=== PATIENT | male | born 1965 | race Caucasian/White ===

== ENCOUNTER → 2024-11-27 06:24 | Outpatient (REF) | payer OTHER, SELFPAY | LOC: RAD 06:24 | PROVIDERS: ATTENDING PHYSICIAN Internal Medicine Cardiovascular Disease; FAMILY PHYSICIAN Physician Assistant Medical | DX: R09.89 Other specified symptoms and signs involving the circulatory and respiratory systems (principal) | CPT/HCPCS: 76770 ==

== ENCOUNTER 2025-05-19 23:35 | Inpatient (IN) | payer OTHER, SELFPAY ==
[2025-05-19 16:56] VITALS: BP 128/76
[2025-05-19 20:39] LABS: Hematocrit 36.3 % (39.0-52.0); Hemoglobin 12.6 g/dL (13.0-18.0); Mean Corp Hgb Conc. 34.7 g/dL (33.0-37.0); Mean Corpuscular Volume 94.5 fL (80.0-94.0); Nucleated Red Blood Cells % 0 % (-); Platelet Count 237 10^3/uL (130-400); Red Cell Dist. Width 12.6 % (11.5-14.5)
[2025-05-19 21:04] LABS: ALT (SGPT) 38 U/L (0-50); AST (SGOT) 24 U/L (17-59); Albumin 4.2 g/dl (3.5-5.0); Alkaline Phosphatase 63 U/L (38-126); Blood Urea Nitrogen 19 mg/dl (9-20); Calcium 9.1 mg/dl (8.4-10.2); Carbon Dioxide 32 mmol/L (22-30); Chloride 106 mmol/L (98-107); Glucose 81 mg/dl (70-99); Potassium 4.2 mmol/L (3.5-5.1); Sodium 141 mmol/L (135-145); Total Protein 5.8 g/dl (6.3-8.2); eGFR > 60.00
[2025-05-19] MEDS: DILAUDID 0.5 MG IV (22:31)
[2025-05-19] MEDS: ZOFRAN 4 MG IV (22:31)
--- NOTE | 2025-05-19 22:39 | ED.GENMED ---
History of Present Illness
General
Chief Complaint: Back Pain
Source: patient
Exam Limitations: none
Time Seen by Provider: 05/19/25 19:50
Nursing documentation reviewed up to this point in time: agreed with
History of Present Illness
History of Present Illness:
Patient reports trip and fall today. COmplains of pain to right hip with radiation to RLE. Brought to ED by family for eval.History of chronic low back pain. States this pain is much worse. denies fever/chills, recent illness. No weakness in
extremities. No bowel or bladder issues. No saddle paresthesia.
Past History
Past History
ED Past Medical History: HTN, Hypercholesterolemia and Other (Chronic back pain)
ED Past Surgical History: Orthopedic and Other (Hernia repair)
Social History
Tobacco: Former smoker
Alcohol: Occasional
Drug: None
Personal:
Living: alone
Employment: Employed
Family History
Family History: Other (No significant)
Review of Systems
Review of Systems
Allergies reviewed?: Yes
All Other Systems: ROS reviewed and negative except as documented in HPI and ROS
Constitutional: Reports no symptoms
EENT: Reports no symptoms
Respiratory: Reports no symptoms
Cardiac: Reports no symptoms
ABD/GI: Reports no symptoms
: Reports no symptoms
Musculoskeletal: Reports joint pain (Pain to right lower back and hip, radiating down RLE)
Skin: Reports no symptoms
Neurological: Reports no symptoms
Psychiatric: Reports no symptoms
Phy Exam
General Physical Exam
General Presentation: moderate distress
General age: appears stated age
General Skin: warm and dry
General Habitus: normal
General Mental: alert
Cardiovascular Exam
Cardiovascular Exam: regular rate/rhythm and no edema
Pulmonary Exam
Pulmonary Exam: lungs clear and no respiratory distress
Neurological Exam
Neurological Exam: alert, oriented x3 and CN II-XII intact
Musculoskeletal Exam
Musculoskeletal Exam: neuro vasc intact
Skin Exam
Skin Exam: normal color, warm/dry and no rash
Psychiatric Exam
Psychiatric Exam: normal mood/affect
Course
Orders/Labs/Results
Orders:
Orders
05/19/25 16:58
CR Hip - RT w/wo Pel 2-3 Vw* Urgent
Comment:
Reason For Exam: fall
Include a pelvis x-ray?: Yes
Lumbar Spine Complete, 4 View [CR Lumbar Spine Comp Min 4 Vw*] Urgent
Comment:
Reason For Exam: fall
05/19/25 20:25
Lower Ext Right wo Contrast CT [CT Lower Ext W/o Iv Cont Rt] Urgent
Comment:
Reason For Exam: hip, femur pain after fall. lesion right femur
05/19/25 20:31
CBC/With Diff [Complete Blood Count/With Diff] Urgent
CMP [Comprehensive Metabolic Panel] Urgent
05/19/25 22:24
HYDROmorphone [Dilaudid] 0.5 mg IV NOW STA
05/19/25 22:25
Ondansetron Injectable [Zofran] 4 mg IV NOW STA
05/19/25 23:30
Admit/Transfer Patient As Directed
Co-Sign Provider:
Level of Care: Inpatient admission
Assign to:: Medical/Surgical
Physician / Group: susan weathers
Diagnosis: pathological fracture
Reason for Hospitalization: pathlogical fracture
Expected length of stay greater than two midnights?: Yes
ELOS- Estimated Length of Stay in days: 3
I certify the patient meets the requirements for IP care: Yes
05/19/25 23:31
PRN Pain Medication Management As Directed
May give lesser potent ordered pain med per pt: Yes
preference::
Protocol:: Medication orders for pain may be administered in a
manner that supports deferring to patient preference
when the pt is:
- Requesting an ordered lesser potent pain medication.
Least to most potent pain medications are defined
as: acetaminophen < NSAID < tramadol < opioids
(morphine, oxycodone, hydromorphone).
- Requesting a lesser dose of the same medication IF
ORDERED.
- Requesting a less intrusive route of administration
if both routes are prescribed by the provider (PO <
IV).
05/19/25 23:32
Code Status As Directed
Resuscitation Status: Full Code
05/19/25 23:34
Skeletal Survey, Limited CR [CR Skeletal Survey, Limited] Routine
Comment:
Reason For Exam: pain
05/20/25 06:00
LAURIE/Immunoglobulins/FLC [Monoclonal Protein Qnt,IMM,FLC] [S] IN AM
PSA Free & Total [S] IN AM
Abnormal Lab Results
05/19/25
20:31
RBC 3.84 L 10^6/uL
(4.70-6.10)
Hgb 12.6 L g/dL
(13.0-18.0)
Hct 36.3 L %
(39.0-52.0)
MCV 94.5 H fL
(80.0-94.0)
MCH 32.8 H pg
(27.0-31.0)
Absolute Monos (auto) 1.0 H 10^3/uL
(0.1-0.6)
Monocytes % 10.6 H %
(1.7-9.3)
Carbon Dioxide 32 H mmol/L
(22-30)
Total Protein 5.8 L g/dl
(6.3-8.2)
05/19/25 20:31
05/19/25 20:31
Vital Signs
Initial and Last Documented VS:
Initial Vital Signs
Temp Pulse Resp BP Pulse Ox
98.6 F 91 16 128/76 95
05/19/25 16:56 05/19/25 16:56 05/19/25 16:56 05/19/25 16:56 05/19/25 16:56
Last Documented Vital Signs
Temp Pulse Resp BP Pulse Ox
98.6 F 91 16 128/76 95
05/19/25 16:56 05/19/25 16:56 05/19/25 16:56 05/19/25 16:56 05/19/25 22:58
*Radiology
Radiology exam reviewed: radiology read reviewed
*Pulse Oximetry
SaO2: 95
Oxygen Mode of Delivery: Room air
Patient hypoxic: no
*Critical Care Note
Total Time (30-74mins, 75-104mins- exclusive of procedures): Not Applicable
Update Note
Update Note:
Patient to ED with complaint of severe right low back and hip pain after fall today ag home. Pain radiates down right leg. Exam results wtihout concern for cauda equina. Xray reviewed. Reveals concerning lesions to bilateral femurs. Sent for CT
due to severe pain in hip. CT confirms metastatic lesions to pelvic bones. Pathologic fx to right acetabulum. Discussed findings with patient and family. WIll admit to hospitalist for pain control, new metastatic disease.
ED Attending Note
-
Portions of this chart may have been created with voice recognition software.� Occasional wrong word or��sound alike� substitutions may have occurred due to the inherent limitations of voice recognition software.
Discharge Plan
Departure
Patient Disposition: Admit
Date of Disposition: 05/19/25
Time of Disposition: 23:01
Presentation/result/management discussed w/ accepting MD/DO: Hospitalist
Condition: Fair
Covid-19: Not Applicable
Discharge Problem:
Intractable pain, Metastatic cancer to bone, Pathologic acetabular fracture
Prescriptions:
No Action
carvedilol 6.25 mg Tablet
6.25 mg PO BID Qty: 60 0RF
atorvastatin 20 mg Tablet
20 mg PO QPM Qty: 30 0RF
hydrocodone-acetaminophen 10-325 mg tablet
1 tab PO BID
furosemide 40 mg tablet
20 mg PO DAILY
Referrals:
Danya Solano PA-C [Family Provider, Family Practice]
Discharge Date and Time
Print Language: MACEDONIAN
--- NOTE | 2025-05-19 23:13 | HPS.HSE ---
Family Physician
-
Family Physician: Danya Solano
Chief Complaint
-
fall
History of Present Illness
59 year old with PMH for HLD, BPH, CHF, back pain presented to us after he tripped over something and fell. since then he has right groin, right lE pain. patient not able to move or walk. denied MARIE, dizzy or syncope. denied fever, chills, cough,
congestion,chest pain,sob. denied abdominal pain,n,v,d. denied dysuria or hematuria.
admitting for further management
Medical History
Past Medical History
Past Medical History: Reports Other
Additional Past Medical History:
BPH
Asthma
CHF
Past Surgical History: Reports Other
Additional Past Surgical History:
Hernia repair, ACL repair
Social History
Tobacco: Former Smoker
Alcohol: None
Drug: None
Living: With Family
Family History
Family History: Not pertinent
Allergies / Home Medications
Allergies reflects when Allergies were last updated in [facility].
Home Medications with original date entered in [facility]
Allergy/Medication List:
Allergies
Allergy/AdvReac Type Severity Reaction Status Date / Time
amoxicillin (Amoxicillin) Allergy Itching Verified 02/20/23 11:01
Home Medications
tadalafil 10 mg tablet 10 mg PO DAILY PRN intercourse 02/20/23
albuterol sulfate 90 mcg/actuation aerosol inhaler (Proventil HFA) 2 puff inhalation Q6H PRN SOB #8.5 grams 02/28/23
aspirin 81 mg tablet,delayed release 81 mg PO DAILY Blood clot prevention/tx #0 tabs 02/28/23
atorvastatin 20 mg tablet 20 mg PO QPM High cholesterol #30 tabs 02/28/23
carvedilol 6.25 mg tablet 6.25 mg PO BID Heart disease/condition #60 tabs 02/28/23
folic acid 1 mg tablet 1 mg PO DAILY Supplement #10 tabs 02/28/23
furosemide 40 mg tablet 40 mg PO BID AT 0800,1600 Heart Failure #120 tabs 02/28/23
gabapentin 100 mg capsule 100 mg PO TID Pain #90 caps 02/28/23
nicotine 14 mg/24 hr daily transdermal patch 14 mg transdermal DAILY Smoking cessation #14 ea 02/28/23
thiamine HCl (vitamin B1) 100 mg tablet 100 mg PO DAILY suplliment #10 tabs 02/28/23
Review of Systems
-
Constitutional: Reports No Symptoms
EENT: Reports No Symptoms
Respiratory: Reports No Symptoms
Cardiac: Reports No Symptoms
Abdomen/GI: Reports No Symptoms
: Reports No Symptoms
Musculoskeletal: Reports Other (right LE pain and weakness)
Skin: Reports No Symptoms
Neurological: Reports No Symptoms
Endocrine: Reports No Symptoms
Hematologic/Lymphatic: Reports No Symptoms
Psych: Reports No Symptoms
Physical Exam
Vital Signs
Vital Signs
Temp Pulse Resp BP Pulse Ox
98.6 F 91 16 128/76 95
05/19/25 16:56 05/19/25 16:56 05/19/25 16:56 05/19/25 16:56 05/19/25 22:58
Physical Exam
General: Well Developed, Well Nourished and No Apparent Distress
HEENT: NormoCephalic, Moist mucous membranes and Atraumatic
Respiratory: Clear
Cardiac: S1/S2 and Regular Rhythm; No Murmur or Rub
GI: Soft, Non Tender, Non Distended and Normal Bowel Sounds; No Organomegaly
Rectal: Deferred by Provider
Musculoskeletal: No Clubbing, No Cyanosis and No Edema
Skin: No Rash
Neuro: AO x 3 and Nonfocal/grossly intact
Psych: Calm
Laboratory Results
-
05/19/25 20:31
05/19/25 20:31
Laboratory Results
Total Bilirubin 0.5 mg/dl (0.2-1.3) 05/19/25 20:31
AST 24 U/L (17-59) 05/19/25 20:31
ALT 38 U/L (0-50) 05/19/25 20:31
Alkaline Phosphatase 63 U/L (38-126) 05/19/25 20:31
Data Reviewed
-
Diagnostic Radiology: Report Reviewed by me
CT Scan: Report Reviewed by me
Lab Data: Labs Reviewed by me
Impression/Plan
-
#intractable back right hip pain secondary to new metastatic bones lesion to pelvis, bilateral femurs
#pathologic right acetabulum fracture
-lumbar spine x ray with Age-indeterminate progressive mild superior plate compression deformity of L1.Chronic moderate to advanced T12 compression deformity.Mild degenerative disc disease and facet arthrosis.
-Hip x ray with Lytic lesions of the right periacetabular ilium, right anterior column, in bilateral femoral diaphysis. Possible considerations include metastatic disease or multiple myeloma
-lower extremity CT pending
-iv Dilaudid prn for pain
-LAURIE, skeletal survey
-fall precaution
#concern for multiple myeloma
-hematology consulted
# CHF
-not in acute exacerbation
-strict I&O, daily weight
-Lasix continued
#HTN
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
#ex Smoker
#Chronic back pain
-hydrocodone
#VTE prophylaxis-Subcu heparin
#full code
--- NOTE | 2025-05-19 23:24 | W.PN.UPDATE ---
Update Note
Progress Note Update
This note serves as an addendum to the H&P by social media sr strategy manager MICHELLE�
Joelle JOEL
HPI�
59M Former smoker, chr LBP, HX HFpEF, RV dysfunction, HLD, seen at ER
- he trip and fall today.
- acute R hip pain with radiation to RLE.
Brought to ED by family for eval
ROS
- denies fever/chills, recent illness. No weakness in extremities. No bowel or bladder issues. No saddle paresthesia.
Relevant VS
Vital Signs
Temp Pulse Resp BP Pulse Ox
98.6 F 91 16 128/76 95
05/19/25 16:56 05/19/25 16:56 05/19/25 16:56 05/19/25 16:56 05/19/25 22:58
PE
GEN: No distress, awake, nasal cannula in place
HEENT: supple, anicteric, mmm
LUNGS: Bibasilar Rales
CV: Reg, S1/S2, 1/6 syst LSB, no gallop
ABD: soft, BS+, NT/ND
EXT: No edema
NEURO: Gross non-focal
SKIN: No rash
Relevant Data
05/19/25
20:31
WBC 9.1
Hgb 12.6 L
Plt Count 237
Carbon Dioxide 32 H
Creatinine 0.9
eGFR > 60.00
Calcium 9.1
Total Protein 5.8 L
Albumin 4.2
R Hip XR
- No radiographically demonstrable right femoral head or neck fracture.
- Lytic lesions of the right periacetabular ilium, right anterior column, in bilateral femoral diaphysis.
Possible considerations include metastatic disease or multiple myeloma.
Lx spine XR
- Age-indeterminate progressive mild superior plate compression deformity of L1.
- Chronic moderate to advanced T12 compression deformity.
- Mild degenerative disc disease and facet arthrosis.
02/22/2023 TTE
- EF 55 to 60%. Moderate LVH.
- Mildly dilated right ventricle with reduced function.
- Mild TR with PA pressure 40 to 45 mmHg.
- Hypoechoic density noted at the sinotubular junction (may have been present retrospectively on last echocardiogram also)
Reviewed CT scan on admission with radiology and felt to be atherosclerosis.
Last hospitalist admission: DATE OF ADMISSION: 02/20/2023 - DATE OF DISCHARGE: 02/28/2023
DISCHARGE DIAGNOSES:
1. Acute respiratory failure.
2. Congestive heart failure.
3. Hypertension.
4. Chronic back pain.
5. Emphysema.
ASSESSMENT & PLAN
R Hip pain
XR evince of Lytic lesions @ R periacetabular ilium, R anterior column, in bilateral femoral diaphysis.
DDX: metastatic disease vs. multiple myeloma.
- Pending R LE CT
- Further w/u for myeloma and secondary metastatic dz
- LAURIE , SPEP and UPEP
- check PSA
- skeletal survey - limited to skull
- PRN narcotic analgesia
- Onco consult
HX RV dysfunction, HX HFpEF
Concern for VESTA
- LENS CLEANER PO Lasix 30mg daily
- LENS CLEANER Carvedilol 6.25mg daily
HLD
- on Atorvastatin
DVT Px: SQH
Full code
IP MS
[2025-05-20] VITALS (8 sets, daily range): BP systolic 99–127; BP diastolic 57–75; BMI 26.8; BMI 26.5
[2025-05-20] MEDS: DILAUDID 0.5 MG IV (02:24)
--- NOTE | 2025-05-20 03:11 | PTCARENOTE ---
Pt arrived to floor via stretcher and requested to stand and pivot to bed. pt aox3, vss, 10/10 pain in right leg/hip. air overlay placed, call faye within reach. Will review chart and follow plan of care.
[2025-05-20] MEDS: LASIX 20 MG PO (08:23)
[2025-05-20] MEDS: HEPARIN 5000 UNITS SC ×2 (08:24→20:27)
[2025-05-20] MEDS: COREG 6.25 MG PO ×2 (08:24→20:26)
--- NOTE | 2025-05-20 08:58 | CON.ONC ---
Consultation
-
Date Consultation Requested: 05/20/25
Date Consultation Performed: 05/20/25
Impression
Impression
Extensive lytic bony disease suggestive of malignancy
Thoracic compression fractures of unclear age
Pain syndrome
Hypertension
History of CHF
Mild anemia with 5 g drop in hemoglobin since end of February
Plan
Plan
Would recommend CT scan chest abdomen and pelvis with oral and IV contrast
Myeloma seems less likely with low immunoglobulins on chemistry
No evidence of renal insufficiency noted IR directed biopsy
Based on CAT scans or iliac bone which seems relatively heavily involved on lower extremity CT scan
Myeloma panel pending
PSA pending
Patient History
History of Present Illness
59 year old with PMH for HLD, BPH, CHF, back pain presented to us after he tripped over something and fell. since then he has right groin, and right lower extremity. Patient not able to move or walk. Denied MARIE, dizzy or syncope. denied fever,
chills, cough, congestion,chest pain,sob, abdominal pain,n,v,d, dysuria or hematuria.
Past-Medical/Surgical History
Past Medical History
BPH
Asthma
CHF
Past Surgical History
Hernia repair, ACL repair
Social History
Tobacco: Former Smoker
Alcohol: None
Drug: None
Living: With Family
Family History
Family History: Not pertinent
Patient Medication
�Medication �Instructions �Recorded �Confirmed �Last Taken �Type
atorvastatin 20 mg tablet 20 mg PO QPM High cholesterol #30 02/28/23 05/19/25 Unknown Rx
tabs
carvedilol 6.25 mg tablet 6.25 mg PO BID Heart 02/28/23 05/19/25 Unknown Rx
disease/condition #60 tabs
furosemide 40 mg tablet 20 mg PO DAILY Heart Failure 05/19/25 05/19/25 Unknown History
hydrocodone 10 mg-acetaminophen 1 tab PO BID back pain 05/19/25 05/19/25 Unknown History
325 mg tablet
Active Medications
Generic Name Dose Route Start Last Admin
Trade Name Freq PRN Reason Stop Dose Admin
Acetaminophen 650 mg 05/20/25 00:07
Acetaminophen 325 Mg Tablet PO 06/17/25 00:06
Q4HPRN PRN
mild pain/MARIE/temp> 100.4F
Atorvastatin Calcium 20 mg 05/20/25 18:00
Atorvastatin (Lipitor) 20 Mg Tablet PO 06/17/25 17:59
QPM CODY
Bisacodyl 10 mg 05/20/25 00:07
Bisacodyl 10 Mg Rectal Suppository RECTAL 06/17/25 00:06
[id number] PRN
constipation
Carvedilol 6.25 mg 05/20/25 08:00 05/20/25 08:24
Carvedilol 6.25 Mg Tablet PO 06/17/25 07:59 6.25 mg
BID CODY Administration
Furosemide 20 mg 05/20/25 08:00 05/20/25 08:23
Furosemide 40 Mg Tablet PO 06/17/25 07:59 20 mg
DAILY CODY Administration
Heparin Sodium 5,000 units 05/20/25 08:00 05/20/25 08:24
Heparin 5,000 Units/Ml 1 Ml Vial SC 06/17/25 07:59 5,000 units
Q12 CODY Administration
Hydromorphone HCl 0.5 mg 05/20/25 00:07 05/20/25 02:24
Hydromorphone 0.5 Mg/0.5 Ml Syringe IV 06/03/25 00:06 0.5 mg
Q4HPRN PRN Administration
severe pain
Non-Formulary Medication 1 tablet 05/20/25 08:00
Hydrocodone-Acetaminophen PO 06/17/25 07:59
BID CODY
Polyethylene Glycol 17 grams 05/20/25 00:07
Polyethylene Glycol Powder 17 Grams Packet PO 06/17/25 00:06
DAILYPRN PRN
constipation
Senna/Docusate Sodium 1 tablet 05/20/25 00:07
Docusate W/Senna (Pauline-Colace) Tablet PO 06/17/25 00:06
BIDPRN PRN
constipation
Review of Systems
-
12 point review of systems fails to elicit additional complaints
Physical Exam
-
Physical Exam
General: Well Developed, Well Nourished and No Apparent Distress
HEENT: NC, Moist mucous membranes and Atraumatic
Respiratory: Clear
Cardiac: S1/S2 and Regular Rhythm; No Murmur or Rub
GI: Soft, Non Tender, Non Distended and Normal Bowel Sounds; No Organomegaly
Rectal: Deferred by Provider
Musculoskeletal: No Clubbing, No Cyanosis and No Edema
Skin: No Rash
Neuro: AO x 3 and Nonfocal/grossly intact
Psych: Calm
Labs
Lab Results
WBC 9.1 10^3/uL (4.8-10.8) 05/19/25 20:31
RBC 3.84 10^6/uL (4.70-6.10) L 05/19/25 20:31
Hgb 12.6 g/dL (13.0-18.0) L 05/19/25 20:31
Hct 36.3 % (39.0-52.0) L 05/19/25 20:31
MCV 94.5 fL (80.0-94.0) H 05/19/25 20:31
MCH 32.8 pg (27.0-31.0) H 05/19/25 20:31
MCHC 34.7 g/dL (33.0-37.0) 05/19/25 20:31
RDW 12.6 % (11.5-14.5) 05/19/25 20:31
Plt Count 237 10^3/uL (130-400) 05/19/25 20:31
MPV 9.6 fL (7.4-10.4) 05/19/25 20:31
Abs Immat Gran (auto) 0.0 10^3/uL (0-0.05) 05/19/25 20:31
Absolute Neuts (auto) 5.2 10^3/uL (1.4-6.5) 05/19/25 20:
Absolute Lymphs (auto) 2.5 10^3/uL (1.2-3.4) 05/19/25 20:31
Absolute Monos (auto) 1.0 10^3/uL (0.1-0.6) H 05/19/25 20:31
Absolute Eos (auto) 0.3 10^3/uL (0-0.7) 05/19/25 20:31
Absolute Basos (auto) 0.1 10^3/uL (0-0.2) 05/19/25 20:31
Immature Gran % 0.3 % (0-0.5) 05/19/25 20:31
Neutrophils % 56.9 % (42.2-75.2) 05/19/25 20:31
Lymphocytes % 27.8 % (20.5-51.1) 05/19/25 20:31
Monocytes % 10.6 % (1.7-9.3) H 05/19/25 20:31
Eosinophils % 3.6 % (0-6) 05/19/25 20:31
Basophils % 0.8 % (0-2) 05/19/25 20:31
Creatinine 0.9 mg/dL (0.7-1.3) 05/19/25 20:31
Vital Signs
Vital Signs
Temp Pulse Resp BP Pulse Ox
98.8 F 89 16 107/57 88
05/20/25 07:56 05/20/25 08:24 05/20/25 07:56 05/20/25 08:24 05/20/25 07:56
[2025-05-20] MEDS: OMNIPAQUE 50 ML PO (10:30)
--- NOTE | 2025-05-20 10:45 | W.PN.HOSP.TC ---
Today's Communication/Plan
-
see outlined plan below
Assessment / Plan
Assessment / Plan
Assessment:
intractable back right hip pain secondary to new metastatic bones lesion to pelvis, bilateral femurs
pathologic right acetabulum fracture
- X:ray: Lytic lesions of the right periacetabular ilium, right anterior column, in bilateral femoral diaphysis. Possible considerations include metastatic disease or multiple myeloma.
- CT: Multiple osseous lytic lesions throughout the imaged pelvic bones as described above consistent with metastatic disease. Findings suggesting associated nondisplaced pathologic fracture of the right acetabulum
- skeletal survey requested
- CT C/A/P with PO/IV contrast per Oncology
- Oncology following; Myeloma workup and PSA pending
- pain control: IV Dilaudid
- PT/OT; TTWB for now. Fall precautions
Chronic HFpEF
- not in acute exacerbation
- strict I&O, daily weight
- Lasix continued
Essential HTN
- continue [employer] Coreg
ex Smoker
Chronic back pain
- hydrocodone
DVT ppx: SC Heparin
Code: Fullfull code
Anticipated Discharge: 24 - 48 hours
Subjective/Interval History
-
Date of Service: May 20, 2025
reports suboptimal pain control with current Dilaudid dose
Objective Data
-
Vital Signs:
Vital Signs
Temp Pulse Resp BP Pulse Ox
98.8 F 89 16 107/57 88
05/20/25 07:56 05/20/25 08:24 05/20/25 07:56 05/20/25 08:24 05/20/25 07:56
I&O
05/19/25 05/20/25 05/21/25
06:59 06:59 06:59
Intake Total 480 / 480
Balance 480 / 480
Physical Exam
-
General: No Apparent Distress
HEENT: Normocephalic and Atraumatic
Respiratory: Negative Wheezes
Cardiac: Regular Rhythm and S1/S2
GI: Soft and Nontender
Musculoskeletal: No Edema
Neuro: AO x 3
Psych: Calm
Data Reviewed
-
Total Time Spent with Patient (in minutes): 44
Labs: Labs Reviewed by me
[2025-05-20] MEDS: DILAUDID 1 MG IV (13:50)
[2025-05-20 14:25] LABS: Hepatitis C Antibody Negative (Negative)
[2025-05-20] MEDS: LIPITOR 20 MG PO (16:51)
[2025-05-20] MEDS: NORCO 5/325 2 TABLET PO (20:27)
[2025-05-21 06:00] VITALS: BMI 26.2
[2025-05-21 07:24] LABS: Hematocrit 36.6 % (39.0-52.0); Hemoglobin 12.6 g/dL (13.0-18.0); Mean Corp Hgb Conc. 34.4 g/dL (33.0-37.0); Mean Corpuscular Volume 93.6 fL (80.0-94.0); Platelet Count 227 10^3/uL (130-400); Red Cell Dist. Width 12.6 % (11.5-14.5)
[2025-05-21] MEDS: NORCO 5/325 2 TABLET PO ×2 (07:26→19:11)
[2025-05-21] MEDS: LASIX 20 MG PO (07:27)
[2025-05-21] MEDS: COREG 6.25 MG PO ×2 (07:27→19:10)
[2025-05-21] MEDS: HEPARIN 5000 UNITS SC ×2 (07:28→19:11)
[2025-05-21 07:47] LABS: Blood Urea Nitrogen 16 mg/dl (9-20); Calcium 9.4 mg/dl (8.4-10.2); Carbon Dioxide 33 mmol/L (22-30); Chloride 102 mmol/L (98-107); Estimated Creatinine Clearance 111 ml/min; Glucose 79 mg/dl (70-99); LDH 163 U/L (120-246); Potassium 4.1 mmol/L (3.5-5.1); Sodium 139 mmol/L (135-145); eGFR > 60.00
[2025-05-21 08:07] VITALS: BP 110/81
[2025-05-21 08:56] LABS: Vitamin D, 25-OH*** 35.6 ng/mL (30-80)
--- NOTE | 2025-05-21 10:17 | W.PN.HOSP.TC ---
Addendum entered and electronically signed by Aixa Reddy MD 05/21/25 14:25:
Addendum
Patient was seen by oncology. Discussed with oncologist on-call, recommend bone biopsy. Discussed with interventional radiologist, lesions amenable to biopsy but will need to scanner.
Discussed with the patient, he did not want to do outpatient biopsy due to difficult transportation and pain problem. Agreeable to stay for inpatient biopsy knowing that timing is undetermined as of yet.
Of note, discussed with patient at length regarding recommendation for SNF to provide supervision and care. Patient has risk for fall and pathological fractures. He verbalized understanding but refused SNF. vessel manager was present at bedside.
End
Original Note:
Today's Communication/Plan
-
prefer SNF discharge
Assessment / Plan
Assessment / Plan
Physical Exam
General: Well Developed, Well Nourished and No Apparent Distress
HEENT: Normocephalic, Moist mucous membranes and Atraumatic
Respiratory: Clear
Cardiac: S1/S2 and Regular Rhythm; No Murmur or Rub
GI: Soft, Non Tender, Non Distended and Normal Bowel Sounds;
Rectal: No bleeding
Musculoskeletal: No Clubbing, No Cyanosis and No Edema
Skin: No Rash
Neuro: AO x 3 and Nonfocal/grossly intact
Psych: Calm
Assessment and plan:
Acute on chronic pain syndrome with opioid dependency
intractable bone pain , mostly back right hip pain secondary to new metastatic bones lesion to bones.
pathologic right acetabulum fracture
- X:ray: Lytic lesions of the right periacetabular ilium, right anterior column, in bilateral femoral diaphysis. Possible considerations include metastatic disease or multiple myeloma.
- CT: Multiple osseous lytic lesions throughout the imaged pelvic bones as described above consistent with metastatic disease. Findings suggesting associated nondisplaced pathologic fracture of the right acetabulum
- skeletal survey done
- CT C/A/P with PO/IV contrast per Oncology, no evidence of metastatic disease within the chest, abdomen, or pelvis.
- Oncology following; Myeloma workup and PSA pending, ok to go home and f/w oncology in office. Labs are pending
- pain control: IV Dilaudid
- PT/OT; TTWB for now. Fall precautions
PT saw him today 05/21, ok with [facility]
Chronic HFpEF
- not in acute exacerbation
- strict I&O, daily weight
- Lasix continued
Essential HTN
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
ex Smoker
Chronic back pain
- hydrocodone
DVT ppx: SC Heparin
Code: Fullfull code
Total discharge time spent to see the patient, examine the patient, review data and lab result, discuss discharge plan with patient, nursing staff around 65 minutes
Anticipated Discharge: Today
Subjective/Interval History
-
Date of Service: May 21, 2025
No chest pain
No sob
Pain is better controlled with combination of hydrocodone and PRN Dilaudid
he is anxious to go home
Objective Data
-
Labs:
Laboratory Results
05/21/25
06:21
WBC 7.9
Hgb 12.6 L
Hct 36.6 L
Plt Count 227
Sodium 139
Potassium 4.1
Chloride 102
Carbon Dioxide 33 H
BUN 16
Creatinine 0.7
Glucose 79
Calcium 9.4
Vital Signs:
Vital Signs
Temp Pulse Resp BP Pulse Ox
98.2 F 72 16 110/81 91
05/21/25 08:07 05/21/25 08:07 05/21/25 08:07 05/21/25 08:07 05/21/25 08:07
I&O
05/20/25 05/21/25 05/22/25
06:59 06:59 06:59
Intake Total 480 / 480 960 / 960
Output Total 1275 / 1275
Balance 480 / 480 -315 / -315
--- NOTE | 2025-05-21 12:23 | CM ---
Patient seen at bedside
IA completed
Lives alone in 1 story home, 4 [address]
spoke with dtr Nemo who lives in [place]
patient seen today by PT - rec home Health
patient does not want SNF
Options reviewed of home health, [facility] preferred
notified liaison and will enter referral in [facility]
script for walker on chart, walker given to patient by PT
PLOF: Independent, crutches
DME: Crutches, cane
Denies VN/has had outpatient PT in past
PCP: Danya Solano
Pharmacy: [facility]
PLAN: Home, with [facility] when stable
states friend will transport
--- NOTE | 2025-05-21 12:27 | VNURNOTE ---
Home Health Liaison met with patient at bedside to discuss [facility] nurse/therapy, visits, schedule and homebound status. Patient is agreeable and understands that visits at home will be 2-3 x per week to assess and teach medical management.
Patient is aware that [facility] will contact them for start of care in 1-2 days after discharge from . Provided contact number for [facility].
[facility] referral completed in [facility].
[2025-05-21 15:31] VITALS: BP 106/60
[2025-05-21] MEDS: LIPITOR 20 MG PO (16:24)
--- NOTE | 2025-05-21 16:40 | W.PN.ONC2 ---
Today's Communication / Plan
-
Await myeloma panel, tumor markers and inpt bone lesion biopsy in IR.
Impression
Impression
Extensive lytic bony disease suggestive of malignancy
Thoracic compression fractures of unclear age
Pain syndrome
Hypertension
History of CHF
Mild anemia with 5 g drop in hemoglobin since end of February
Plan
Plan
Personally reviewed films from CT scan chest abdomen and pelvis with oral and IV contrast. No soft tissue lesions suggestive of a primary.
Myeloma seems less likely with low immunoglobulins on chemistry but panel still pending.
Added additional tumor markers including [place] 19-9.
Plan is noted for inpt bone lesion biopsy in IR.
Subjective/Objective
Chief Complaint
Heme/Onc follow up of apparent lytic bone mets
Subjective
Denies new complaint. Wants to go home if nothing will be done but willing to stay for diagnostic procedure.
Vital Signs:
Vital Signs
Temp Pulse Resp BP Pulse Ox
98.3 F 80 16 106/60 90
05/21/25 15:31 05/21/25 15:31 05/21/25 15:31 05/21/25 15:31 05/21/25 15:31
Lab Results:
Laboratory Data
WBC 7.9 10^3/uL (4.8-10.8) 05/21/25 06:21
Hgb 12.6 g/dL (13.0-18.0) L 05/21/25 06:21
Plt Count 227 10^3/uL (130-400) 05/21/25 06:21
eGFR > 60.00 05/21/25 06:21
Physical Exam
Awake, alert, non-toxic
Orders
Orders
Orders From Last 24 Hours
05/21/25 11:04
Add On- LAB Routine
[2025-05-21 19:45] LABS: CEA 0.86 ng/ml
[2025-05-22 02:11] VITALS: BP 107/56
[2025-05-22 05:56] VITALS: BMI 26.0
[2025-05-22] MEDS: NORCO 5/325 2 TABLET PO ×2 (07:16→20:42)
[2025-05-22] MEDS: COREG 6.25 MG PO (07:17)
[2025-05-22] MEDS: HEPARIN 5000 UNITS SC ×2 (07:17→20:42)
[2025-05-22] MEDS: LASIX 20 MG PO (07:17)
[2025-05-22 07:34] VITALS: BP 130/84
--- NOTE | 2025-05-22 10:10 | W.PN.HOSP.TC ---
Today's Communication/Plan
-
Bone biopsy on afternoon
Assessment / Plan
Assessment / Plan
Physical Exam
General: Well Developed, Well Nourished and No Apparent Distress
HEENT: Normocephalic, Moist mucous membranes and Atraumatic
Respiratory: Clear
Cardiac: S1/S2 and Regular Rhythm; No Murmur or Rub
GI: Soft, Non Tender, Non Distended and Normal Bowel Sounds;
Rectal: No bleeding
Musculoskeletal: No Clubbing, No Cyanosis and No Edema
Skin: No Rash
Neuro: AO x 3 and Nonfocal/grossly intact
Psych: Calm
Assessment and plan:
Acute on chronic pain syndrome with opioid dependency
intractable bone pain , mostly back right hip pain secondary to new metastatic bones lesion to bones.
pathologic right acetabulum fracture
- X:ray: Lytic lesions of the right periacetabular ilium, right anterior column, in bilateral femoral diaphysis. Possible considerations include metastatic disease or multiple myeloma.
- CT: Multiple osseous lytic lesions throughout the imaged pelvic bones as described above consistent with metastatic disease. Findings suggesting associated nondisplaced pathologic fracture of the right acetabulum
- skeletal survey done
- CT C/A/P with PO/IV contrast per Oncology, no evidence of metastatic disease within the chest, abdomen, or pelvis.
- Oncology following; Myeloma workup and PSA pending, recommended bone biopsy then OP follow up.
- pain control: IV Dilaudid with oral [place].
- PT/OT; TTWB for now. Fall precautions
I d/w pt at length, wanted to do bone biopsy in hospital
D/w IR, plan for biopsy with CT guidance
Chronic HFpEF
- not in acute exacerbation
- strict I&O, daily weight
- Lasix continued
Essential HTN
- continue LEAD SYSTEMS ARCHITECT Coreg
#ex Smoker
#Chronic pain syndrome with opioid dependency
On oral hydrocodone 10 mg at home.
DVT ppx: SC Heparin
Code: full code
Total time spent to see the patient, examine the patient, review data and lab result, discuss treatment plan with patient, oncology, nursing staff around 59 minutes
Anticipated Discharge: > 48 hours
Subjective/Interval History
-
Date of Service: May 22, 2025
No worsening pain or sob
No chest pain
No fevers
Objective Data
-
Vital Signs:
Vital Signs
Temp Pulse Resp BP Pulse Ox
98.0 F 61 18 130/84 92
05/22/25 07:34 05/22/25 07:34 05/22/25 07:34 05/22/25 07:34 05/22/25 07:34
I&O
05/21/25 05/22/25 05/23/25
06:59 06:59 06:59
Intake Total 960 / 960 1320 / 1320
Output Total 1275 / 1275 500 / 500
Balance -315 / -315 820 / 820
--- NOTE | 2025-05-22 10:59 | CM ---
Patient seen at bedside
await bone lesion biopsy in IR
PT rec SNF -- patient refused
wanted [facility]N [facility]
PLAN: home with [facility], CM to continue to follow for dispo planning
--- NOTE | 2025-05-22 11:50 | W.PN.ONC ---
Today's Communication / Plan
-
await IR bone biopsy, SPEP/LAURIE, [facility]
Impression
Impression
Extensive lytic bony lesions suggestive of malignancy
Thoracic compression fractures of unclear age
Pain syndrome
Hypertension
History of CHF
Mild anemia with 5 g drop in hemoglobin since end of February
Plan
Plan
Await IR bone biopsy, scheduled for 05/24
SPEP/LAURIE/FL[facility] pending, though no findings on CMP to suggest myeloma
CEA/PSA normal
Outpatient onc f/u after discharge
Subjective/Objective
Subjective/Objective
no new issues
Vital Signs:
Vital Signs
Temp Pulse Resp BP Pulse Ox
98.0 F 61 18 130/84 92
05/22/25 07:34 05/22/25 07:34 05/22/25 07:34 05/22/25 07:34 05/22/25 07:34
Lab Results:
Laboratory Data
WBC 7.9 10^3/uL (4.8-10.8) 05/21/25 06:21
Hgb 12.6 g/dL (13.0-18.0) L 05/21/25 06:21
Plt Count 227 10^3/uL (130-400) 05/21/25 06:21
eGFR > 60.00 05/21/25 06:21
[2025-05-22 15:24] VITALS: BP 112/53
[2025-05-22] MEDS: LIPITOR 20 MG PO (17:14)
[2025-05-22] MEDS: COREG PO (20:42)
[2025-05-22 23:02] VITALS: BP 108/71
[2025-05-23 02:30] LABS: Albumin 3.76 g/dL (3.75-5.01); Free Kappa Light Chains,Quant 2920.03 mg/L (3.30-19.40); Free Lambda Light Chains,Quant 3.48 mg/L (5.71-26.30); Immunofixation Electrophoresis IFE Done; Kappa/Lambda Fr Light Ratio 839.09 (0.26-1.65); Total Protein-Electrophoresis 5.5 g/dL (6.3-8.2)
--- NOTE | 2025-05-23 04:50 | DOWNTIME ---
There was a [employer] Client Sterile Supervisor Downtime on 05/23/2025 from 0100 to 05/23/2025 at 0235. Downtime documentation of patient's care, including medication administrations, has been reconciled in the electronic record per guidelines. Refer to the
patient's paper chart under the miscellaneous tab to see printed paper medication records and downtime forms.
[2025-05-23 06:00] VITALS: BMI 25.9
[2025-05-23 07:00] VITALS: BP 123/74
[2025-05-23] MEDS: LASIX 20 MG PO (08:02)
[2025-05-23] MEDS: NORCO 5/325 2 TABLET PO ×2 (08:02→21:59)
[2025-05-23] MEDS: HEPARIN 5000 UNITS SC ×2 (08:03→21:58)
[2025-05-23] MEDS: COREG 6.25 MG PO ×2 (08:03→21:59)
--- NOTE | 2025-05-23 09:17 | W.PN.HOSP.TC ---
Today's Communication/Plan
-
f/w oncology recommendations
Assessment / Plan
Assessment / Plan
Physical Exam
General: Well Developed, Well Nourished and No Apparent Distress
HEENT: Normocephalic, Moist mucous membranes and Atraumatic
Respiratory: Clear
Cardiac: S1/S2 and Regular Rhythm; No Murmur or Rub
GI: Soft, Non Tender, Non Distended and Normal Bowel Sounds;
Rectal: No bleeding
Musculoskeletal: No Clubbing, No Cyanosis and No Edema
Skin: No Rash
Neuro: AO x 3 and Nonfocal/grossly intact
Psych: Calm
Assessment and plan:
Acute on chronic pain syndrome with opioid dependency
intractable bone pain , mostly back right hip pain secondary to new metastatic bones lesion to bones.
pathologic right acetabulum fracture
- X:ray: Lytic lesions of the right periacetabular ilium, right anterior column, in bilateral femoral diaphysis. Possible considerations include metastatic disease or multiple myeloma.
- CT: Multiple osseous lytic lesions throughout the imaged pelvic bones as described above consistent with metastatic disease. Findings suggesting associated nondisplaced pathologic fracture of the right acetabulum
- skeletal survey done
- CT C/A/P with PO/IV contrast per Oncology, no evidence of metastatic disease within the chest, abdomen, or pelvis.
- Oncology following; Myeloma workup and PSA pending, recommended bone biopsy then OP follow up.
- pain control: IV Dilaudid with oral [place].
- PT/OT; TTWB for now. Fall precautions
I d/w pt at length, wanted to do bone biopsy in hospital
D/w IR, plan for afternoon biopsy with CT guidance
Chronic HFpEF
- not in acute exacerbation
- strict I&O, daily weight
- Lasix continued
Essential HTN
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
#ex Smoker
#Chronic pain syndrome with opioid dependency
On oral hydrocodone 10 mg at home.
DVT ppx: SC Heparin
Code: full code
Total time spent to see the patient, examine the patient, review data and lab result, discuss treatment plan with patient, oncology, nursing staff around 45 minutes
Anticipated Discharge: 24 - 48 hours
Subjective/Interval History
-
Date of Service: May 23, 2025
No worsening pain
Objective Data
-
Vital Signs:
Vital Signs
Temp Pulse Resp BP Pulse Ox
98.1 F 61 20 123/74 96
05/23/25 07:00 05/23/25 08:03 05/23/25 07:00 05/23/25 08:03 05/23/25 07:00
I&O
05/22/25 05/23/25 05/24/25
06:59 06:59 06:59
Intake Total 1320 / 1320 960 / 960
Output Total 500 / 500
Balance 820 / 820 960 / 960
--- NOTE | 2025-05-23 11:40 | W.PN.ONC2 ---
Today's Communication / Plan
-
Bone Bx and outpatient workup.
I did discuss the likelihood of multiple myeloma and typical Tx including outpatient rVD chemotherapy and [facility] suto transplant.
He prefers Tx at [facility]; eventual transplant eval at [place]
25 min
Impression
Impression
Non secretory kappa restricted multiple myeloma (K:L of 2920:3)
Extensive lytic bony lesions (only CRAB criteria)
Thoracic compression fractures of unclear age
Pain syndrome
Hypertension
History of CHF
Mild anemia with 5 g drop in hemoglobin since end of February
Plan
Plan
Await IR bone biopsy, scheduled for 05/24 but kappa: lambda HIGHLY suggestive of multiple myeloma.
Gave patient and attending option. BMBx being obtained tomorrow
Subjective/Objective
Chief Complaint
ACS Follow up
Subjective
Pain well controlled. Not exactly sure the score but ~ 5/10 or less.
Vital Signs:
Vital Signs
Temp Pulse Resp BP Pulse Ox
98.1 F 61 20 123/74 96
05/23/25 07:00 05/23/25 08:03 05/23/25 07:00 05/23/25 08:03 05/23/25 07:00
Lab Results:
Laboratory Data
WBC 7.9 10^3/uL (4.8-10.8) 05/21/25 06:21
Hgb 12.6 g/dL (13.0-18.0) L 05/21/25 06:21
Plt Count 227 10^3/uL (130-400) 05/21/25 06:21
eGFR > 60.00 05/21/25 06:21
Laboratory Tests
05/20/25
06:33
IgG 329 L
IgA 15 L
IgM <10 L
Immunofix Electrophor Selena done
Free [place] LC, Quant 2920.03 H
Free [place] LC, Quant 3.48 L
Free [place]/Lambda Ratio 839.09 H
Physical Exam
HEENT: No Jaundice
Cardiology: S1 and S2
Pulmonary: Clear
GI: Soft
Extremities: No C/C/E
--- NOTE | 2025-05-23 11:48 | CM ---
Patient seen at bedside
PT 05/22 rec Home Health
[facility]
plan for afternoon biopsy with CT guidance
PLAN: home with [facility] when stable
[2025-05-23 12:42] LABS: LDH 168 U/L (120-246)
[2025-05-23 15:00] VITALS: BP 115/65
[2025-05-23] MEDS: LIPITOR 20 MG PO (17:42)
[2025-05-23 23:00] VITALS: BP 109/62
[2025-05-24 06:00] VITALS: BMI 25.8
--- NOTE | 2025-05-24 07:31 | W.PN.ONC ---
Today's Communication / Plan
-
Await IR bone biopsy, plan for today
Reviewed the presumed diagnosis of kappa light chain myeloma with lytic disease
Patient provided information on the presumed diagnosis
Anticipate discharge and follow-up as an outpatient postprocedure
Impression
Impression
Non secretory kappa restricted multiple myeloma (K:L of 2920:3)
Extensive lytic bony lesions (only CRAB criteria)
Thoracic compression fractures of unclear age
Pain syndrome
Hypertension
History of CHF
Mild anemia with 5 g drop in hemoglobin since end of February
Subjective/Objective
Subjective/Objective
Patient without new complaints today pain well-controlled.
Vital Signs:
Vital Signs
Temp Pulse Resp BP Pulse Ox
97.8 F 63 18 109/62 95
05/23/25 23:00 05/23/25 23:00 05/23/25 23:00 05/23/25 23:00 05/23/25 23:00
Physical exam unchanged
Lab Results:
Laboratory Data
WBC 7.9 10^3/uL (4.8-10.8) 05/21/25 06:21
Hgb 12.6 g/dL (13.0-18.0) L 05/21/25 06:21
Plt Count 227 10^3/uL (130-400) 05/21/25 06:21
eGFR > 60.00 05/21/25 06:21
[2025-05-24 07:50] VITALS: BP 111/64
[2025-05-24 07:55] LABS: INR 0.92; PT 12.8 Sec (11.4-14.6)
[2025-05-24] MEDS: NORCO 5/325 2 TABLET PO (07:56)
[2025-05-24] MEDS: LASIX 20 MG PO (07:56)
[2025-05-24] MEDS: COREG PO (07:57)
[2025-05-24] MEDS: HEPARIN SC (07:58)
--- NOTE | 2025-05-24 10:10 | W.PN.HOSP.TC ---
Addendum entered and electronically signed by Aixa Reddy MD 05/24/25 17:35:
Addendum
Patient underwent bone biopsy and tolerated the procedure well
Ordered dinner for him and tolerated diet
Patient wanted to go home.
I updated daughter Denise earlier and answered all her question
Daughter is aware that patient will need support system/home care while undergoing treatment
Total discharge time spent to see the patient, examine the patient, review data and lab results, discuss discharge plan with patient, nursing staff around 65 minutes
Original Note:
Today's Communication/Plan
-
Bone biopsy today
Can leave after it
Assessment / Plan
Assessment / Plan
Physical Exam
General: Well Developed, Well Nourished and No Apparent Distress
HEENT: Normocephalic, Moist mucous membranes and Atraumatic
Respiratory: Clear
Cardiac: S1/S2 and Regular Rhythm; No Murmur or Rub
GI: Soft, Non Tender, Non Distended and Normal Bowel Sounds;
Rectal: No bleeding
Musculoskeletal: No Clubbing, No Cyanosis and No Edema
Skin: No Rash
Neuro: AO x 3 and Nonfocal/grossly intact
Psych: Calm
Assessment and plan:
Acute on chronic pain syndrome with opioid dependency
intractable bone pain , mostly back right hip pain secondary to new metastatic bones lesion to bones.
pathologic right acetabulum fracture
- X:ray: Lytic lesions of the right periacetabular ilium, right anterior column, in bilateral femoral diaphysis. Possible considerations include metastatic disease or multiple myeloma.
- CT: Multiple osseous lytic lesions throughout the imaged pelvic bones as described above consistent with metastatic disease. Findings suggesting associated nondisplaced pathologic fracture of the right acetabulum
- skeletal survey done
- CT C/A/P with PO/IV contrast per Oncology, no evidence of metastatic disease within the chest, abdomen, or pelvis.
- Oncology following; Myeloma workup and PSA pending, recommended bone biopsy then OP follow up.
- pain control: IV Dilaudid with oral [place].
- PT/OT; TTWB for now. Fall precautions
I d/w pt at length, wanted to do bone biopsy in hospital
D/w IR, plan for 05/[address]
Chronic HFpEF
- not in acute exacerbation
- strict I&O, daily weight
- Lasix continued
Essential HTN
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
#ex Smoker
#Chronic pain syndrome with opioid dependency
On oral hydrocodone 10 mg at home.
DVT ppx: SC Heparin
Code: full code
Total time spent to see the patient, examine the patient, review data and lab result, discuss treatment plan with patient, oncology, nursing staff around 45 minutes
Anticipated Discharge: Today
Subjective/Interval History
-
Date of Service: May 24, 2025
No chest pain
No sob
Objective Data
-
Labs:
Laboratory Results
05/24/25
06:55
PT 12.8
INR 0.92
Vital Signs:
Vital Signs
Temp Pulse Resp BP Pulse Ox
98.0 F 59 17 111/64 97
05/24/25 07:50 05/24/25 07:57 05/24/25 07:50 05/24/25 07:57 05/24/25 07:50
I&O
05/23/25 05/24/25 05/25/25
06:59 06:59 06:59
Intake Total 960 / 960 1380 / 1380
Balance 960 / 960 1380 / 1380
[2025-05-24 14:26] VITALS: BP 125/78; BP_SYST 57
--- NOTE | 2025-05-24 14:29 | CM ---
Patient for bone biopsy today
Referral in [facility] for [facility]
notified liaison - per note dc after bone biopsy
PLAN: Home with [facility]
[2025-05-24 16:24] VITALS: BP 111/66
[2025-05-24 16:30] VITALS: BP 111/66
[2025-05-24 16:35] VITALS: BP 106/67
[2025-05-24 17:24] VITALS: BP 131/78
[2025-05-24] MEDS: LIPITOR 20 MG PO (17:31)
--- NOTE | 2025-05-24 17:34 | W.DCSUMMARY ---
Discharge Summary
Discharge Data
Date of Admission: 05/19/25
Date of Discharge: 05/24/25
-
Pending Results: No
Hospital Course
59 years old male presented to the hospital after he tripped and fell at home. He experienced right hip pain radiating to the right lower extremity. No fever or chills. No head trauma. His imaging studies showed lytic lesions which were diffuse.
Further imaging studies including skeletal survey showed extensive lytic bony lesions. Patient has history of chronic pain syndrome with opioid dependency. He was following with pain management doctor for several years. Patient was evaluated by
oncologist. Blood work was consistent with likely diagnosis of nonsecretory kappa restricted multiple myeloma. He had normal renal function. Oncologist recommended bone biopsy to confirm diagnosis and to pursue treatment in outpatient setting.
Pain became better controlled. Patient was followed by physical therapy and recommended home health services. Discharge planning was discussed with patient and his daughter and they were advised to seek outpatient care/support system to help the
patient through cancer treatment. Patient was evaluated by binder caser. He remained hemodynamically stable was discharged home in a stable condition.
Discharge Plan
-
Patient Disposition: Home with Home Care
Discharge Diagnosis/Procedures: Non secretory kappa restricted multiple myeloma
Extensive lytic bony lesions
Thoracic compression fractures of unclear age
Pain syndrome
Diet: As tolerated
Referrals:
Willie Chester DO [Active, Hematology / Oncology] - in one to two weeks
Danya Solano PA-C [Family Provider, Family Practice] - in one to two weeks
Prescriptions:
New
hydromorphone [Dilaudid] 2 mg tablet
2 mg PO Q6H PRN (Reason: severe pain) Qty: 14 0RF
Continued
carvedilol 6.25 mg Tablet
6.25 mg PO BID Qty: 60 0RF
atorvastatin 20 mg Tablet
20 mg PO QPM Qty: 30 0RF
hydrocodone-acetaminophen 10-325 mg tablet
1 tab PO BID
furosemide 40 mg tablet
20 mg PO DAILY
Discharge Orders:
Discharge Patient (As Directed); Ordered 05/24/25
Ordered By: Aixa Reddy
Discharge Date and Time
Discharge Date/Time: 05/24/25 19:09
Print Language: GREEK
== END 2025-05-24 19:09 | disposition home health service (06) | DRG 824 ==
LOC: 3 WEST ACU 23:35
PROVIDERS: Internal Medicine; Internal Medicine Hematology & Oncology; Nurse Practitioner; Radiology Vascular & Interventional Radiology; Registered Nurse; ADMITTING PHYSICIAN Internal Medicine; ATTENDING PHYSICIAN Internal Medicine; CONSULT PHYSICIAN Internal Medicine Hematology & Oncology; EMERGENCY PHYSICIAN Emergency Medicine; FAMILY PHYSICIAN Physician Assistant Medical
PROC: 0QB33ZX Excision of Left Pelvic Bone, Percutaneous Approach, Diagnostic (ICD-10-PCS; 2025-05-24)
DX: C90.00 Multiple myeloma not having achieved remission (principal); F11.20 Opioid dependence, uncomplicated; I50.32 Chronic diastolic (congestive) heart failure; M84.550A Pathological fracture in neoplastic disease, pelvis, initial encounter for fracture; M48.54XA Collapsed vertebra, not elsewhere classified, thoracic region, initial encounter for fracture; M48.56XA Collapsed vertebra, not elsewhere classified, lumbar region, initial encounter for fracture; M25.551 Pain in right hip; G89.4 Chronic pain syndrome; E78.00 Pure hypercholesterolemia, unspecified; I11.0 Hypertensive heart disease with heart failure; J45.909 Unspecified asthma, uncomplicated; D64.9 Anemia, unspecified; M47.819 Spondylosis without myelopathy or radiculopathy, site unspecified; J43.9 Emphysema, unspecified; N40.0 Benign prostatic hyperplasia without lower urinary tract symptoms; W01.0XXA Fall on same level from slipping, tripping and stumbling without subsequent striking against object, initial encounter; Y93.01 Activity, walking, marching and hiking; Y92.009 Unspecified place in unspecified non-institutional (private) residence as the place of occurrence of the external cause; Z60.2 Problems related to living alone; Z87.891 Personal history of nicotine dependence; Z88.0 Allergy status to penicillin; Z79.82 Long term (current) use of aspirin
CPT/HCPCS: 20225; 71260; 72110; 72125; 73502; 73700; 74177; 77012; 77074; 80048; 80053; 82232; 82306; 82378; 82784; 82785; 83521; 83615; 84100; 84153; 84154; 84155; 84165; 85025; 85027; 85610; 86334; 86803; 88173; 88305; 88342; 88365; 96374; 96375; 97116; 97161; 97167; 97530; 97535; 99152; 99285; Q9967

== ENCOUNTER → 2025-06-25 06:44 | Outpatient (REF) | payer OTHER, SELFPAY ==
[2025-06-25] VITALS (8 sets, daily range): BP systolic 59–136; BP diastolic 63–86
[2025-06-25 07:04] LABS: Hematocrit 38.3 % (39.0-52.0); Hemoglobin 13.2 g/dL (13.0-18.0); Mean Corp Hgb Conc. 34.5 g/dL (33.0-37.0); Mean Corpuscular Volume 95.8 fL (80.0-94.0); Nucleated Red Blood Cells % 0 % (-); Platelet Count 278 10^3/uL (130-400); Red Cell Dist. Width 12.2 % (11.5-14.5)
[2025-06-25 07:13] LABS: INR 1.00; PT 13.5 Sec (11.4-14.6)
[2025-06-25] MEDS: ATIVAN 0.5 MG PO (07:38)
== END ==
LOC: RADI 06:44
PROVIDERS: ATTENDING PHYSICIAN Physician Assistant; FAMILY PHYSICIAN Physician Assistant Medical
DX: C90.00 Multiple myeloma not having achieved remission (principal); D68.8 Other specified coagulation defects
CPT/HCPCS: 36415; 38222; 77012; 85025; 85610; 88305; 88311; 88312; 88313

== ENCOUNTER → 2025-06-28 08:34 | Outpatient (REF) | payer OTHER, SELFPAY ==
[2025-06-28 08:27] LABS: Glucose 91 mg/dl (70-99)
== END ==
LOC: PET 08:34
PROVIDERS: ATTENDING PHYSICIAN Internal Medicine Hematology & Oncology
DX: C90.00 Multiple myeloma not having achieved remission (principal)
CPT/HCPCS: 36415; 82947

== ENCOUNTER → 2025-07-02 07:02 | Outpatient (REF) | payer OTHER, SELFPAY ==
[2025-07-02 07:55] LABS: Hematocrit 37.0 % (39.0-52.0); Hemoglobin 12.9 g/dL (13.0-18.0); Mean Corp Hgb Conc. 34.9 g/dL (33.0-37.0); Mean Corpuscular Volume 94.9 fL (80.0-94.0); Nucleated Red Blood Cells % 0 % (-); Platelet Count 322 10^3/uL (130-400); Red Cell Dist. Width 12.4 % (11.5-14.5)
[2025-07-02 08:18] LABS: ALT (SGPT) 60 U/L (0-50); AST (SGOT) 34 U/L (17-59); Albumin 4.5 g/dl (3.5-5.0); Alkaline Phosphatase 72 U/L (38-126); Blood Urea Nitrogen 17 mg/dl (9-20); Calcium 10.1 mg/dl (8.4-10.2); Carbon Dioxide 33 mmol/L (22-30); Chloride 101 mmol/L (98-107); Glucose 87 mg/dl (70-99); Potassium 4.7 mmol/L (3.5-5.1); Sodium 139 mmol/L (135-145); Total Protein 6.4 g/dl (6.3-8.2); eGFR > 60.00
== END ==
LOC: REG 07:02
PROVIDERS: ATTENDING PHYSICIAN Internal Medicine Hematology & Oncology; FAMILY PHYSICIAN Physician Assistant Medical
DX: C90.00 Multiple myeloma not having achieved remission (principal)
CPT/HCPCS: 36415; 80053; 85025

== ENCOUNTER → 2025-07-09 06:31 | Outpatient (REF) | payer OTHER, SELFPAY ==
[2025-07-09 07:40] LABS: Hematocrit 38.2 % (39.0-52.0); Hemoglobin 12.9 g/dL (13.0-18.0); Mean Corp Hgb Conc. 33.8 g/dL (33.0-37.0); Mean Corpuscular Volume 93.9 fL (80.0-94.0); Nucleated Red Blood Cells % 0 % (-); Platelet Count 235 10^3/uL (130-400); Red Cell Dist. Width 13.1 % (11.5-14.5)
[2025-07-09 08:02] LABS: ALT (SGPT) 73 U/L (0-50); AST (SGOT) 32 U/L (17-59); Albumin 4.1 g/dl (3.5-5.0); Alkaline Phosphatase 72 U/L (38-126); Blood Urea Nitrogen 12 mg/dl (9-20); Calcium 8.8 mg/dl (8.4-10.2); Carbon Dioxide 31 mmol/L (22-30); Chloride 104 mmol/L (98-107); Glucose 87 mg/dl (70-99); Potassium 4.7 mmol/L (3.5-5.1); Sodium 138 mmol/L (135-145); Total Protein 5.9 g/dl (6.3-8.2); eGFR > 60.00
== END ==
LOC: REG 06:31
PROVIDERS: ATTENDING PHYSICIAN Internal Medicine Hematology & Oncology; FAMILY PHYSICIAN Physician Assistant Medical
DX: C90.00 Multiple myeloma not having achieved remission (principal)
CPT/HCPCS: 36415; 80053; 85025

== ENCOUNTER → 2025-07-16 07:01 | Outpatient (REF) | payer OTHER, SELFPAY ==
[2025-07-16 08:12] LABS: Hematocrit 40.0 % (39.0-52.0); Hemoglobin 13.3 g/dL (13.0-18.0); Mean Corp Hgb Conc. 33.3 g/dL (33.0-37.0); Mean Corpuscular Volume 94.3 fL (80.0-94.0); Nucleated Red Blood Cells % 0 % (-); Platelet Count 183 10^3/uL (130-400); Red Cell Dist. Width 13.1 % (11.5-14.5)
[2025-07-16 08:34] LABS: ALT (SGPT) 94 U/L (0-50); AST (SGOT) 48 U/L (17-59); Albumin 4.1 g/dl (3.5-5.0); Alkaline Phosphatase 67 U/L (38-126); Blood Urea Nitrogen 12 mg/dl (9-20); Calcium 8.8 mg/dl (8.4-10.2); Carbon Dioxide 31 mmol/L (22-30); Chloride 101 mmol/L (98-107); Glucose 94 mg/dl (70-99); Potassium 4.5 mmol/L (3.5-5.1); Sodium 136 mmol/L (135-145); Total Protein 6.2 g/dl (6.3-8.2); eGFR > 60.00
== END ==
LOC: REG 07:01
PROVIDERS: ATTENDING PHYSICIAN Internal Medicine Hematology & Oncology; FAMILY PHYSICIAN Physician Assistant Medical; OTHER PHYSICIAN Internal Medicine Hematology & Oncology
DX: C90.00 Multiple myeloma not having achieved remission (principal); Z76.82 Awaiting organ transplant status
CPT/HCPCS: 36415; 80053; 85025

== ENCOUNTER → 2025-07-23 06:41 | Outpatient (REF) | payer OTHER, SELFPAY ==
[2025-07-23 08:19] LABS: Hematocrit 37.9 % (39.0-52.0); Hemoglobin 12.9 g/dL (13.0-18.0); Mean Corp Hgb Conc. 34.0 g/dL (33.0-37.0); Mean Corpuscular Volume 95.0 fL (80.0-94.0); Nucleated Red Blood Cells % 0 % (-); Platelet Count 167 10^3/uL (130-400); Red Cell Dist. Width 13.1 % (11.5-14.5)
[2025-07-23 08:45] LABS: ALT (SGPT) 70 U/L (0-50); AST (SGOT) 28 U/L (17-59); Albumin 3.9 g/dl (3.5-5.0); Alkaline Phosphatase 77 U/L (38-126); Blood Urea Nitrogen 15 mg/dl (9-20); Calcium 8.3 mg/dl (8.4-10.2); Carbon Dioxide 32 mmol/L (22-30); Chloride 100 mmol/L (98-107); Glucose 84 mg/dl (70-99); Potassium 4.4 mmol/L (3.5-5.1); Sodium 135 mmol/L (135-145); Total Protein 5.8 g/dl (6.3-8.2); eGFR > 60.00
== END ==
LOC: REG 06:41
PROVIDERS: ATTENDING PHYSICIAN Internal Medicine Hematology & Oncology; FAMILY PHYSICIAN Physician Assistant Medical
DX: C90.00 Multiple myeloma not having achieved remission (principal)
CPT/HCPCS: 36415; 80053; 85025

== ENCOUNTER → 2025-07-30 07:05 | Outpatient (REF) | payer OTHER, SELFPAY ==
[2025-07-30 08:53] LABS: Hematocrit 41.5 % (39.0-52.0); Hemoglobin 13.6 g/dL (13.0-18.0); Mean Corp Hgb Conc. 32.8 g/dL (33.0-37.0); Mean Corpuscular Volume 98.3 fL (80.0-94.0); Nucleated Red Blood Cells % 0 % (-); Platelet Count 243 10^3/uL (130-400); Red Cell Dist. Width 13.5 % (11.5-14.5)
[2025-07-30 09:09] LABS: ALT (SGPT) 69 U/L (0-50); AST (SGOT) 27 U/L (17-59); Albumin 4.1 g/dl (3.5-5.0); Alkaline Phosphatase 95 U/L (38-126); Blood Urea Nitrogen 14 mg/dl (9-20); Calcium 9.3 mg/dl (8.4-10.2); Carbon Dioxide 33 mmol/L (22-30); Chloride 102 mmol/L (98-107); Glucose 79 mg/dl (70-99); Potassium 4.4 mmol/L (3.5-5.1); Sodium 135 mmol/L (135-145); Total Protein 6.2 g/dl (6.3-8.2); eGFR > 60.00
== END ==
LOC: REG 07:05
PROVIDERS: ATTENDING PHYSICIAN Internal Medicine Hematology & Oncology; FAMILY PHYSICIAN Physician Assistant Medical
DX: C90.00 Multiple myeloma not having achieved remission (principal)
CPT/HCPCS: 36415; 80053; 85025

== ENCOUNTER → 2025-08-06 06:40 | Outpatient (REF) | payer OTHER, SELFPAY ==
[2025-08-06 08:06] LABS: Hematocrit 39.9 % (39.0-52.0); Hemoglobin 13.5 g/dL (13.0-18.0); Mean Corp Hgb Conc. 33.8 g/dL (33.0-37.0); Mean Corpuscular Volume 96.6 fL (80.0-94.0); Nucleated Red Blood Cells % 0 % (-); Platelet Count 195 10^3/uL (130-400); Red Cell Dist. Width 13.7 % (11.5-14.5)
[2025-08-06 08:26] LABS: ALT (SGPT) 114 U/L (0-50); AST (SGOT) 34 U/L (17-59); Albumin 3.9 g/dl (3.5-5.0); Alkaline Phosphatase 106 U/L (38-126); Blood Urea Nitrogen 22 mg/dl (9-20); Calcium 9.0 mg/dl (8.4-10.2); Carbon Dioxide 33 mmol/L (22-30); Chloride 98 mmol/L (98-107); Glucose 79 mg/dl (70-99); Potassium 4.6 mmol/L (3.5-5.1); Sodium 132 mmol/L (135-145); Total Protein 6.0 g/dl (6.3-8.2); eGFR > 60.00
== END ==
LOC: REG 06:40
PROVIDERS: ATTENDING PHYSICIAN Internal Medicine Hematology & Oncology; FAMILY PHYSICIAN Physician Assistant Medical
DX: C90.00 Multiple myeloma not having achieved remission (principal)
CPT/HCPCS: 36415; 80053; 85025

== ENCOUNTER → 2025-08-13 06:42 | Outpatient (REF) | payer OTHER, SELFPAY ==
[2025-08-13 07:51] LABS: Hematocrit 40.6 % (39.0-52.0); Hemoglobin 13.7 g/dL (13.0-18.0); Mean Corp Hgb Conc. 33.7 g/dL (33.0-37.0); Mean Corpuscular Volume 94.2 fL (80.0-94.0); Platelet Count 212 10^3/uL (130-400); Red Cell Dist. Width 13.6 % (11.5-14.5)
[2025-08-13 08:23] LABS: ALT (SGPT) 64 U/L (0-50); AST (SGOT) 26 U/L (17-59); Albumin 4.1 g/dl (3.5-5.0); Alkaline Phosphatase 79 U/L (38-126); Blood Urea Nitrogen 17 mg/dl (9-20); Calcium 9.0 mg/dl (8.4-10.2); Carbon Dioxide 33 mmol/L (22-30); Chloride 98 mmol/L (98-107); Glucose 81 mg/dl (70-99); Potassium 4.3 mmol/L (3.5-5.1); Sodium 135 mmol/L (135-145); Total Protein 6.1 g/dl (6.3-8.2); eGFR > 60.00
[2025-08-13 09:24] LABS: Nucleated Red Blood Cells % 0 % (-)
== END ==
LOC: REG 06:42
PROVIDERS: ATTENDING PHYSICIAN Internal Medicine Hematology & Oncology; FAMILY PHYSICIAN Physician Assistant Medical
DX: C90.00 Multiple myeloma not having achieved remission (principal)
CPT/HCPCS: 36415; 80053; 85025

== ENCOUNTER → 2025-08-20 06:18 | Outpatient (REF) | payer OTHER, SELFPAY ==
[2025-08-20 08:05] LABS: Hematocrit 41.0 % (39.0-52.0); Hemoglobin 14.0 g/dL (13.0-18.0); Mean Corp Hgb Conc. 34.1 g/dL (33.0-37.0); Mean Corpuscular Volume 95.3 fL (80.0-94.0); Platelet Count 166 10^3/uL (130-400); Red Cell Dist. Width 13.9 % (11.5-14.5)
[2025-08-20 10:26] LABS: ALT (SGPT) 62 U/L (0-50); AST (SGOT) 30 U/L (17-59); Albumin 4.1 g/dl (3.5-5.0); Alkaline Phosphatase 63 U/L (38-126); Blood Urea Nitrogen 13 mg/dl (9-20); Calcium 8.6 mg/dl (8.4-10.2); Carbon Dioxide 31 mmol/L (22-30); Chloride 101 mmol/L (98-107); Glucose 60 mg/dl (70-99); Potassium 4.2 mmol/L (3.5-5.1); Sodium 138 mmol/L (135-145); Total Protein 6.1 g/dl (6.3-8.2); eGFR > 60.00
[2025-08-20 11:24] LABS: Normal RBC Morphology Yes; Platelets Checked Yes; Total Cells Counted 100
[2025-08-20 11:25] LABS: Absolute Neutrophils -Man Diff 3.1 10^3/uL (1.4-6.5)
== END ==
LOC: REG 06:18
PROVIDERS: ATTENDING PHYSICIAN Internal Medicine Hematology & Oncology; FAMILY PHYSICIAN Physician Assistant Medical
DX: C90.00 Multiple myeloma not having achieved remission (principal)
CPT/HCPCS: 36415; 80053; 85025

== ENCOUNTER → 2025-08-21 07:16 | Outpatient (REF) | payer OTHER, SELFPAY | LOC: RSP 07:16 | PROVIDERS: ATTENDING PHYSICIAN Internal Medicine Hematology & Oncology; FAMILY PHYSICIAN Physician Assistant Medical; OTHER PHYSICIAN Internal Medicine Hematology & Oncology | DX: C90.00 Multiple myeloma not having achieved remission (principal) | CPT/HCPCS: 71260; 88738; 93306; 93356; 94060; 94727; 94729; Q9967 ==

== ENCOUNTER → 2025-08-27 06:36 | Outpatient (REF) | payer OTHER, SELFPAY ==
[2025-08-27 07:59] LABS: Hematocrit 38.4 % (39.0-52.0); Hemoglobin 13.2 g/dL (13.0-18.0); Mean Corp Hgb Conc. 34.4 g/dL (33.0-37.0); Mean Corpuscular Volume 96.5 fL (80.0-94.0); Nucleated Red Blood Cells % 0 % (-); Platelet Count 195 10^3/uL (130-400); Red Cell Dist. Width 13.7 % (11.5-14.5)
[2025-08-27 08:06] LABS: ALT (SGPT) 68 U/L (0-50); AST (SGOT) 30 U/L (17-59); Albumin 3.9 g/dl (3.5-5.0); Alkaline Phosphatase 66 U/L (38-126); Blood Urea Nitrogen 23 mg/dl (9-20); Calcium 9.5 mg/dl (8.4-10.2); Carbon Dioxide 35 mmol/L (22-30); Chloride 101 mmol/L (98-107); Glucose 78 mg/dl (70-99); Potassium 4.5 mmol/L (3.5-5.1); Sodium 135 mmol/L (135-145); Total Protein 6.1 g/dl (6.3-8.2); eGFR > 60.00
== END ==
LOC: REG 06:36
PROVIDERS: ATTENDING PHYSICIAN Internal Medicine Hematology & Oncology; FAMILY PHYSICIAN Physician Assistant Medical
DX: C90.00 Multiple myeloma not having achieved remission (principal)
CPT/HCPCS: 36415; 80053; 85025

== ENCOUNTER → 2025-09-03 07:01 | Outpatient (REF) | payer OTHER, SELFPAY ==
[2025-09-03 08:23] LABS: Hematocrit 38.6 % (39.0-52.0); Hemoglobin 12.5 g/dL (13.0-18.0); Mean Corp Hgb Conc. 32.4 g/dL (33.0-37.0); Mean Corpuscular Volume 98.7 fL (80.0-94.0); Nucleated Red Blood Cells % 0 % (-); Platelet Count 205 10^3/uL (130-400); Red Cell Dist. Width 14.2 % (11.5-14.5)
[2025-09-03 08:59] LABS: ALT (SGPT) 70 U/L (0-50); AST (SGOT) 31 U/L (17-59); Albumin 3.9 g/dl (3.5-5.0); Alkaline Phosphatase 68 U/L (38-126); Blood Urea Nitrogen 17 mg/dl (9-20); Calcium 9.4 mg/dl (8.4-10.2); Chloride 99 mmol/L (98-107); Glucose 89 mg/dl (70-99); Potassium 4.2 mmol/L (3.5-5.1); Sodium 135 mmol/L (135-145); Total Protein 5.8 g/dl (6.3-8.2); eGFR > 60.00
[2025-09-03 09:13] LABS: Carbon Dioxide 35 mmol/L (22-30)
== END ==
LOC: REG 07:01
PROVIDERS: ATTENDING PHYSICIAN Internal Medicine Hematology & Oncology; FAMILY PHYSICIAN Physician Assistant Medical
DX: C90.00 Multiple myeloma not having achieved remission (principal)
CPT/HCPCS: 36415; 80053; 85025

== ENCOUNTER → 2025-09-10 06:42 | Outpatient (REF) | payer OTHER, SELFPAY ==
[2025-09-10 07:28] LABS: Hematocrit 39.0 % (39.0-52.0); Hemoglobin 12.9 g/dL (13.0-18.0); Mean Corp Hgb Conc. 33.1 g/dL (33.0-37.0); Mean Corpuscular Volume 99.0 fL (80.0-94.0); Nucleated Red Blood Cells % 0 % (-); Platelet Count 220 10^3/uL (130-400); Red Cell Dist. Width 13.9 % (11.5-14.5)
[2025-09-10 07:52] LABS: ALT (SGPT) 66 U/L (0-50); AST (SGOT) 29 U/L (17-59); Albumin 3.8 g/dl (3.5-5.0); Alkaline Phosphatase 71 U/L (38-126); Blood Urea Nitrogen 7 mg/dl (9-20); Calcium 8.7 mg/dl (8.4-10.2); Carbon Dioxide 31 mmol/L (22-30); Chloride 101 mmol/L (98-107); Glucose 80 mg/dl (70-99); Potassium 4.2 mmol/L (3.5-5.1); Sodium 135 mmol/L (135-145); Total Protein 5.7 g/dl (6.3-8.2); eGFR > 60.00
== END ==
LOC: REG 06:42
PROVIDERS: ATTENDING PHYSICIAN Internal Medicine Hematology & Oncology
DX: C90.00 Multiple myeloma not having achieved remission (principal)
CPT/HCPCS: 36415; 80053; 85025

== ENCOUNTER → 2025-09-17 06:28 | Outpatient (REF) | payer OTHER, SELFPAY ==
[2025-09-17 07:11] LABS: Hematocrit 38.2 % (39.0-52.0); Hemoglobin 12.7 g/dL (13.0-18.0); Mean Corp Hgb Conc. 33.2 g/dL (33.0-37.0); Mean Corpuscular Volume 95.7 fL (80.0-94.0); Nucleated Red Blood Cells % 0 % (-); Platelet Count 166 10^3/uL (130-400); Red Cell Dist. Width 14.0 % (11.5-14.5)
[2025-09-17 07:21] LABS: ALT (SGPT) 51 U/L (0-50); AST (SGOT) 26 U/L (17-59); Albumin 3.9 g/dl (3.5-5.0); Alkaline Phosphatase 58 U/L (38-126); Blood Urea Nitrogen 13 mg/dl (9-20); Calcium 9.2 mg/dl (8.4-10.2); Carbon Dioxide 32 mmol/L (22-30); Chloride 102 mmol/L (98-107); Glucose 96 mg/dl (70-99); Potassium 4.3 mmol/L (3.5-5.1); Sodium 135 mmol/L (135-145); Total Protein 5.9 g/dl (6.3-8.2); eGFR > 60.00
== END ==
LOC: REG 06:28
PROVIDERS: ATTENDING PHYSICIAN Internal Medicine Hematology & Oncology; FAMILY PHYSICIAN Physician Assistant Medical
DX: C90.00 Multiple myeloma not having achieved remission (principal)
CPT/HCPCS: 36415; 80053; 85025

== ENCOUNTER → 2025-09-24 06:30 | Outpatient (REF) | payer OTHER, SELFPAY ==
[2025-09-24 07:50] LABS: Hematocrit 37.8 % (39.0-52.0); Hemoglobin 12.6 g/dL (13.0-18.0); Mean Corp Hgb Conc. 33.3 g/dL (33.0-37.0); Mean Corpuscular Volume 95.7 fL (80.0-94.0); Nucleated Red Blood Cells % 0 % (-); Platelet Count 195 10^3/uL (130-400); Red Cell Dist. Width 13.8 % (11.5-14.5)
[2025-09-24 08:27] LABS: ALT (SGPT) 38 U/L (0-50); AST (SGOT) 26 U/L (17-59); Albumin 3.9 g/dl (3.5-5.0); Alkaline Phosphatase 64 U/L (38-126); Blood Urea Nitrogen 16 mg/dl (9-20); Calcium 9.5 mg/dl (8.4-10.2); Carbon Dioxide 32 mmol/L (22-30); Chloride 100 mmol/L (98-107); Glucose 79 mg/dl (70-99); Potassium 4.3 mmol/L (3.5-5.1); Sodium 135 mmol/L (135-145); Total Protein 5.8 g/dl (6.3-8.2); eGFR > 60.00
== END ==
LOC: REG 06:30
PROVIDERS: ATTENDING PHYSICIAN Internal Medicine Hematology & Oncology; FAMILY PHYSICIAN Physician Assistant Medical
DX: C90.00 Multiple myeloma not having achieved remission (principal)
CPT/HCPCS: 36415; 80053; 85025